=== PATIENT | male | born 2000 | race Caucasian/White ===

== ENCOUNTER 2021-11-21 20:43 | Emergency (ER) | payer BC, SELFPAY ==
[2021-11-21] MEDS ORDERED: Acetaminophen 500 MG TAB ONE (21:17)
[2021-11-21] MEDS ORDERED: Ketorolac Tromethamine 30 MG/ML VIAL ONE (21:17)
[2021-11-22 19:22] LABS: SARS-CoV-2 PCR by NAA Not Detected (NotDetected)
== END 2021-11-21 22:38 | disposition home or self-care (01) ==
LOC: CSHERS 20:43
DX: J06.9 Acute upper respiratory infection, unspecified (principal); Z20.822 Contact with and (suspected) exposure to COVID-19
CPT/HCPCS: 87804; 96372; 99284; J1885; U0003; U0005

== ENCOUNTER 2024-06-13 16:17 | Emergency (ER) | payer BC ==
[2024-06-13 17:20] LABS: #Basophils 0.04 10x3/uL (0.0-0.2); #Eosinphils 0.17 10x3/uL (0.0-0.5); #Monocytes 0.84 10x3/uL (0.0-1.1); #Neutrophils 4.71 10x3/uL (1.5-8.4); %Basophils 0.5 % (0.0-2.0); %Eosinophils 2.2 % (0.0-6.0); %Lymphocytes 26.6 % (18.0-47.0); %Monocytes 10.6 % (0.0-10.0); %Neutrophils 59.6 % (40.0-75.0); Hematocrit 45.5 % (38.8-50.0); Hemoglobin 15.7 g/dL (13.5-17.5); Mean Corpuscular HGB CONC 34.5 g/dL (32.0-36.0); Mean Corpuscular Hemoglobin 30.8 pg (27.0-33.0); Mean Corpuscular Volume 89.2 fL (81.2-95.1); Mean Platelet Volume 9.3 fL (7.4-10.4); Platelet Count 262 10x3/uL (150-450); RBC Distribution Width 11.9 % (11.5-14.5); White Blood Cell (WBC) Count 7.9 10x3/uL (3.5-10.5)
[2024-06-13 17:37] LABS: ALT (SGPT) 85 U/L (8-55); AST (SGOT) 44 U/L (5-34); Albumin 4.3 g/dL (3.5-5.0); Alkaline Phosphatase 72 U/L (40-110); Anion Gap 15 mmol/L (10-20); BUN (Urea Nitrogen) 14 mg/dL (8.9-20.6); Bilirubin, Total 0.8 mg/dL (0.2-1.2); Calc. Creatinine Clearance 0 mL/min (70-130); Calcium 9.2 mg/dL (7.8-10.44); Carbon Dioxide 19 mmol/L (22-29); Chloride 106 mmol/L (98-107); Estimated GFR 100; Globulin 2.9 g/dL (2.4-3.5); Glucose 91 mg/dL (70-105); Potassium 3.8 mmol/L (3.5-5.1); Protein, Total 7.2 g/dL (6.0-8.3); Sodium 136 mmol/L (136-145)
[2024-06-13 17:38] LABS: Troponin I Less than 0.010 ng/mL (< 0.028)
[2024-06-13 17:51] LABS: Influenza A by NAA Not Detected (NotDetected); Influenza B by NAA Not Detected (NotDetected); SARS-CoV-2 NAA Rapid Test Not Detected (NotDetected)
[2024-06-13] MEDS ORDERED: Milk Of Magnesia 30 ML UDCUP ONE (18:51)
[2024-06-13] MEDS ORDERED: Lidocaine Viscous Sol 2% 15 ml UD Cup ONE (18:51)
== END 2024-06-13 19:01 | disposition home or self-care (01) ==
LOC: CSHERS 16:17
DX: K20.90 Esophagitis, unspecified without bleeding (principal); R07.89 Other chest pain; Z55.0 Illiteracy and low-level literacy
CPT/HCPCS: 36415; 71046; 80053; 84484; 85025; 93005